=== PATIENT | male | born 1980 | race African-American/Black ===

== ENCOUNTER 2016-08-26 05:28 | Emergency (ER) | payer BC ==
[2016-08-26 05:35] VITALS: BP 136/79; PULSE 88; RESP 18; TEMP 97
[2016-08-26] MEDS ORDERED: KETOROLAC 60 MG/2 ML VIAL IM STA (05:57)
[2016-08-26] MEDS ORDERED: ORPHENADRINE 30 MG/ML 2 ML VIAL IM STA (05:57)
--- NOTE | 2016-08-26 06:01 | ED ---
Back Pain HPI - General Chief Complaint: Back Pain/Injury Stated Complaint: Back Pain Time Seen by Provider: 08/26/16 05:45 Source: patient Limitations: no limitations - History of Present Illness Initial Comments: This patient is a 36-year-old man who presents to be evaluated for low back pain. Patient states that he started expressing pain to the lumbar area of his back when he got out of bed this morning use the bathroom. He indicates that pain is constant, moderate, aching and it is worse if he attempts to move. Pains better if he remains still. Patient has not had any weakness of the legs or any radiation of the pain to the legs. No loss of bladder or bowel control. No saddle anesthesia. MD Complaint: back pain Onset/Timin -: hour(s) Similar Symptoms Previously: No Place: home Radiation: none Severity: moderate Quality: aching Consistency: constant Improves With: movement Worsens With: none Context: turning/twisting Associated Symptoms: denies other symptoms - Related Data Previous Rx's Medication Instructions Recorded Ibuprofen [Motrin] 800 mg PO Q8HR PRN #20 tab 08/26/16 Methocarbamol [Robaxin-750] 750 mg PO TID PRN #30 tablet 08/26/16 Allergies Allergy/AdvReac Type Severity Reaction Status Date / Time No Known Allergies Allergy Verified 08/26/16 05:35 Review of Systems ROS Statement: Those systems with pertinent positive or pertinent negative responses have been documented in the HPI. ROS Other: All systems not noted in ROS Statement are negative. Constitutional: Denies: fever, chills, weakness Cardiovascular: Denies: chest pain Gastrointestinal: Denies: abdominal pain, diarrhea, constipation Genitourinary: Denies: dysuria, hematuria Musculoskeletal: Reports: as per HPI, back pain Neurological: Denies: headache, weakness, numbness Past Medical History Past Medical History: No Reported History History of Any Multi-Drug Resistant Organisms: None Reported Past Surgical History: Orthopedic Surgery Additional Past Surgical History / Comment(s): knee surg Past Psychological History: No Psychological Hx Reported Smoking Status: Former smoker Past Alcohol Use History: Occasional Past Drug Use History: None Reported General Exam Limitations: no limitations General appearance: alert, in no apparent distress GI/Abdominal exam: Present: soft. Absent: distended, tenderness, guarding, rebound, rigid, mass, pulsatile mass, hernia Back exam: Present: muscle spasm, paraspinal tenderness. Absent: tenderness, CVA tenderness (R), CVA tenderness (L), vertebral tenderness Neurological exam: Present: alert, normal gait, reflexes normal. Absent: motor sensory deficit Skin exam: Present: warm, dry, intact, normal color. Absent: rash Course Vital Signs 08/26/16 05:32 Temperature 97.0 F L Pulse Rate 88 Respiratory 18 Rate Blood Pressure 136/79 O2 Sat by Pulse 99 Oximetry Disposition Clinical Impression: Strain of lumbar region Disposition: HOME SELF-CARE Condition: Good Instructions: Acute Low Back Pain (ED) Prescriptions: Ibuprofen [Motrin] 800 mg PO Q8HR PRN #20 tab PRN Reason: Pain Methocarbamol [Robaxin-750] 750 mg PO TID PRN #30 tablet PRN Reason: pain Referrals: None,Stated [Primary Care Provider] - 1-2 days
== END 2016-08-26 06:05 | disposition home or self-care (01) ==
LOC: EC 05:28
DX: S39.012A Strain of muscle, fascia and tendon of lower back, initial encounter (principal); Z87.891 Personal history of nicotine dependence; X50.1XXA Overexertion from prolonged static or awkward postures, initial encounter
CPT/HCPCS: 99283; 96372 ×2; J2360; J1885

== ENCOUNTER 2017-05-25 07:47 | Emergency (ER) | payer BC ==
--- NOTE | 2017-05-25 08:33 | ED ---
General Adult HPI - General Chief complaint: ENT Stated complaint: Ear pain Time Seen by Provider: 05/25/17 08:16 Source: patient, RN notes reviewed Mode of arrival: ambulatory Limitations: no limitations - History of Present Illness Initial comments: Patient 37-year-old male who presents emergency room today with a chief complaint of right-sided ear pain. He does admit that he was diagnosed with bronchitis. States that he was given pain medication cough medication and eardrops a few days ago. He states he isn't for 2 days has not used in the last few days and symptoms are not improving. Patient does have some drainage coming from the right ear. The pain pressure locally. He denies any other complaints or associated symptoms. Patient denies any recent shortness of breath , chest pain, back pain, abdominal pain, nausea or vomiting, numbness or tingling, headaches or visual changes, or any other complaints. - Related Data Home Medications Medication Instructions Recorded Confirmed Vncdmpay-Aqglvnsbu-Mu Otic 4 drops RIGHT EAR TID 05/25/17 05/25/17 [Cortisporin Otic Soln] Previous Rx's Medication Instructions Recorded Acetaminophen-Codeine 300-30mg 1 tab PO Q4H PRN #20 tablet 05/20/17 [Tylenol w/codeine #3] Ibuprofen [Motrin] 600 mg PO Q8HR PRN #20 tab 05/20/17 Amoxicillin 500 mg PO Q8H 10 Days day 05/25/17 Ofloxacin 0.3% Otic Soln [Floxin 10 drops RIGHT EAR BID 7 Days ml 05/25/17 0.3% Otic Soln] Allergies Allergy/AdvReac Type Severity Reaction Status Date / Time No Known Allergies Allergy Verified 05/25/17 08:04 Review of Systems ROS Statement: Those systems with pertinent positive or pertinent negative responses have been documented in the HPI. ROS Other: All systems not noted in ROS Statement are negative. Past Medical History Past Medical History: No Reported History History of Any Multi-Drug Resistant Organisms: None Reported Past Surgical History: Orthopedic Surgery Additional Past Surgical History / Comment(s): knee surg Past Psychological History: No Psychological Hx Reported Smoking Status: Former smoker Past Alcohol Use History: Occasional Past Drug Use History: None Reported General Exam - General Exam Comments Initial Comments: General: The patient is awake and alert, in no distress, and does not appear acutely ill. Eye: Pupils are equal, round and reactive to light, extra-ocular movements are intact. No nystagmus. There is normal conjunctiva bilaterally. No signs of icterus. Ears, nose, mouth and throat: There are moist mucous membranes and no oral lesions. Left TM clear. Right TM difficult to see due to drainage and inflammation of the right ear canal. Neck: The neck is supple, there is no tenderness or JVD. Cardiovascular: There is a regular rate and rhythm. No murmur, rub or gallop is appreciated. Respiratory: Lungs are clear to auscultation, respirations are non-labored, breath sounds are equal. No wheezes, stridor, rales, or rhonchi. Musculoskeletal: Normal ROM, no tenderness. Strength 5/5. Sensation intact. Pulses equal bilaterally 2+. Neurological: A&O x 3. CN II-XII intact, There are no obvious motor or sensory deficits. Coordination appears grossly intact. Speech is normal. Skin: Skin is warm and dry and no rashes or lesions are noted. Psychiatric: Cooperative, appropriate mood & affect, normal judgment. Limitations: no limitations Course Vital Signs 05/25/17 07:54 Temperature 99.1 F Pulse Rate 76 Respiratory 16 Rate Blood Pressure 144/78 O2 Sat by Pulse 98 Oximetry Medical Decision Making - Medical Decision Making 37-year-old male presenting for right-sided ear drainage. Was prescribed eardrops 4 days ago but only use them for the first 2 days. Has not been using drops the past 2 days or not improving. Patient will have antibiotics changed to different eardrops. Patient had ear wick placed into the ear canal to assure that drops were getting in. Advised patient that he sees these eardrops for symptoms to improve. Advised him to THEM doctor the next 2 days. Also start patient on oral antibiotics cover for otitis media as cannot see the tympanic membrane on the right side. Disposition Clinical Impression: Right otitis externa Disposition: HOME SELF-CARE Condition: Good Instructions: Otitis Externa (ED) Additional Instructions: Please use antibiotic drops as prescribed. As well the ear wick to follow up on its own. Please follow-up with ENT or family doctor over the next few days. Please return to the emergency room symptoms increase or worsen or for any other concerns. Prescriptions: Amoxicillin 500 mg PO Q8H 10 Days day Ofloxacin 0.3% Otic Soln [Floxin 0.3% Otic Soln] 10 drops RIGHT EAR BID 7 Days ml Referrals: None,Stated [Primary Care Provider] - 1-2 days Blake Serra MD [STAFF PHYSICIAN] - 1-2 days Time of Disposition: 08:31
[2017-05-25 23:20] VITALS: BP 144/78; PULSE 76; RESP 16; TEMP 99.1
== END 2017-05-25 08:51 | disposition home or self-care (01) ==
LOC: EC 07:47
DX: H60.91 Unspecified otitis externa, right ear (principal); Z87.891 Personal history of nicotine dependence
CPT/HCPCS: 99282

== ENCOUNTER 2017-12-01 12:20 | Emergency (ER) | payer BC ==
[2017-12-01 12:35] VITALS: BP 115/72; PULSE 70; RESP 18; TEMP 98.4
[2017-12-01] MEDS ORDERED: ORPHENADRINE 30 MG/ML 2 ML VIAL IM STA (13:04)
[2017-12-01] MEDS ORDERED: KETOROLAC 30 MG/ML 1 ML VIAL IM STA (13:04)
--- NOTE | 2017-12-01 13:26 | XR ---
EXAMINATION TYPE: XR lumbar spine 2 or 3V DATE OF EXAM: 12/01/2017 CLINICAL HISTORY: Back strain injury yesterday TECHNIQUE: Frontal and lateral images of the lumbar spine are obtained. COMPARISON: None FINDINGS: There are 5 lumbar type vertebral bodies identified. The lumbar spine shows satisfactory alignment without evidence of acute fracture or dislocation. Vertebral body heights and disk space he ights are within normal limits. No significant spurring is seen. The overlying soft tissue appears u nremarkable. IMPRESSION: No acute fracture or dislocation is seen in the lumbar spine.
--- NOTE | 2017-12-01 13:38 | ED ---
General Adult HPI - General Chief complaint: Back Pain/Injury Stated complaint: LOWER BACK PAIN FOLLOWING BENDING OVER Time Seen by Provider: 12/01/17 13:00 Source: patient Mode of arrival: ambulatory Limitations: no limitations - History of Present Illness Initial comments: 37-year-old male presents to the emergency department for a chief complaint of low back pain 2 days. 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 Patient denies any other injuries or falls. Patient has not taken Motrin or Tylenol for the pain. Patient states this has happened to him before in the past for which she was seen here. Patient denies any shooting or sharp pains in the legs. Patient denies any bladder or bowel changes. No IV drug abuse. No history of diabetes. Patient has no other complaints at this time including shortness of breath, chest pain, abdominal pain, nausea or vomiting, headache, or visual changes. - Related Data Previous Rx's Medication Instructions Recorded Cyclobenzaprine [Flexeril] 10 mg PO TID #20 tab 12/01/17 Ibuprofen [Motrin] 600 mg PO Q6HR PRN #20 tab 12/01/17 Allergies Allergy/AdvReac Type Severity Reaction Status Date / Time No Known Allergies Allergy Verified 12/01/17 12:40 Review of Systems ROS Statement: Those systems with pertinent positive or pertinent negative responses have been documented in the HPI. ROS Other: All systems not noted in ROS Statement are negative. Past Medical History Past Medical History: No Reported History History of Any Multi-Drug Resistant Organisms: None Reported Past Surgical History: Orthopedic Surgery Additional Past Surgical History / Comment(s): knee surg Past Psychological History: No Psychological Hx Reported Smoking Status: Current some day smoker Past Alcohol Use History: Occasional Past Drug Use History: None Reported General Exam Limitations: no limitations General appearance: alert, in no apparent distress Head exam: Present: atraumatic, normocephalic, normal inspection Eye exam: Present: normal appearance ENT exam: Present: normal exam, mucous membranes moist Neck exam: Present: normal inspection, full ROM. Absent: tenderness, meningismus, lymphadenopathy Respiratory exam: Present: normal lung sounds bilaterally. Absent: respiratory distress, wheezes, rales, rhonchi, stridor Cardiovascular Exam: Present: regular rate, normal rhythm, normal heart sounds. Absent: systolic murmur, diastolic murmur, rubs, gallop, clicks Extremities exam: Present: normal capillary refill (Capillary refill less than 2 seconds and pedal pulse 2+ and left lower extremities bilaterally), other ( Sensation intact and left lower extremities bilaterally) Back exam: Present: paraspinal tenderness (Minor bilateral paraspinal tenderness.). Absent: full ROM (Patient is about 10 flexion and extension of the low back. Patient is able to twist to both sides bilaterally.), tenderness (Tenderness to the lumbar spine.), CVA tenderness (R), CVA tenderness (L) Course Vital Signs 12/01/17 12:32 Temperature 98.4 F Pulse Rate 70 Respiratory 18 Rate Blood Pressure 115/72 O2 Sat by Pulse 97 Oximetry Medical Decision Making - Medical Decision Making 37-year-old male presents to the emergency department for a chief complaint of low back pain 2 days. 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 Patient states this has happened to him before. Patient denies any other injuries. No bladder or bowel changes. On exam patient has limited range of motion of the low back and is about 10 extend chin and flexion before pain begins. Patient is able to twist to both sides and then laterally. Patient does have some lumbar spinal tenderness as well as minor paraspinal lumbar tenderness.X-ray of the lumbar spine shows no acute fracture or dislocation. Vertebral body height and disc space heights are within normal limits. No significant spurring present. Patient was given Toradol and Norflex in the emergency department which helped with his pain. Patient will be discharged home with Motrin and Flexeril. He was educated not to drive or operate machinery while taking Flexeril. He will follow up with primary care in 1-2 days. Aware he can return to the emergency department if he has any worsening symptoms. Disposition Clinical Impression: Low back pain Disposition: HOME SELF-CARE Condition: Good Instructions: Acute Low Back Pain (ED) Additional Instructions: Please take Motrin as directed. Please take Flexeril as well. Do not take Flexeril if you're driving or operating machinery. Follow up with primary care in 1-2 days. Return to the emergency department if you develop any worsening symptoms such as bladder or bowel dysfunction or severe pain. Prescriptions: Cyclobenzaprine [Flexeril] 10 mg PO TID #20 tab Ibuprofen [Motrin] 600 mg PO Q6HR PRN #20 tab PRN Reason: Pain Is patient prescribed a controlled substance at d/c from ED?: No Referrals: Willem Motley MD [STAFF PHYSICIAN] - 1-2 days Time of Disposition: 13:45
== END 2017-12-01 14:05 | disposition home or self-care (01) ==
LOC: EC 12:20
DX: M54.5 Low back pain (principal); F17.200 Nicotine dependence, unspecified, uncomplicated
CPT/HCPCS: 99283; 96372 ×2; 72100; J2360; J1885

== ENCOUNTER 2017-12-12 16:11 | Emergency (ER) | payer BC ==
[2017-12-12 16:51] VITALS: BP 124/75; PULSE 75; RESP 18; TEMP 98.4
[2017-12-12] MEDS ORDERED: KETOROLAC 60 MG/2 ML VIAL IM STA (17:31)
[2017-12-12] MEDS ORDERED: LIDOCAINE/EPINEPHR/TETRACAINE 5 ML BOTTLE TOPICAL ONE (17:33)
--- NOTE | 2017-12-12 18:31 | ED ---
General Adult HPI - General Chief complaint: Skin/Abscess/Foreign Body Stated complaint: Face swollen Time Seen by Provider: 12/12/17 17:14 Source: patient Mode of arrival: ambulatory Limitations: no limitations - History of Present Illness Initial comments: This a 37-year-old male with no past medical history who presents today for chief complaint of right-sided facial swelling with "ingrown hair" x1day. Patient states that a week ago he noticed sitting return here on the right side of his face in his [place]. However this morning he noticed that the area around the ingrown hair had now become swollen and hard. 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 Pt denies fever, chills, teeth pain , ear pain, overlying erythema, recent antibiotic use, trauma to the jaw/face, insect bite, pruritus, drainage or pus from area, difficulty breathing, trismus. Pt tried to "pop" the area this morning however he was not successful. Pt states that he has been taken ibuprofen for the pain today but it did not help. Patient denies any shortness of breath, chest pain, back pain, abdominal pain, nausea or vomiting, numbness or tingling, dysuria or hematuria, constipation or diarrhea, headaches or visual changes, or any other complaints. Denies previous MRSA infection. - Related Data Previous Rx's Medication Instructions Recorded Cyclobenzaprine [Flexeril] 10 mg PO TID #20 tab 12/01/17 Ibuprofen [Motrin] 600 mg PO Q6HR PRN #20 tab 12/01/17 Doxycycline [Vibramycin] 100 mg PO BID 7 Days #28 capsule 12/12/17 Allergies Allergy/AdvReac Type Severity Reaction Status Date / Time No Known Allergies Allergy Verified 12/01/17 12:40 Review of Systems ROS Statement: Those systems with pertinent positive or pertinent negative responses have been documented in the HPI. ROS Other: All systems not noted in ROS Statement are negative. Constitutional: Denies: fever, chills Eyes: Denies: eye pain, vision change ENT: Denies: ear pain, throat pain Respiratory: Denies: cough Cardiovascular: Denies: chest pain, palpitations Endocrine: Denies: fatigue Gastrointestinal: Denies: abdominal pain, nausea, vomiting, diarrhea, constipation Genitourinary: Denies: urgency, dysuria, frequency Musculoskeletal: Denies: back pain Skin: Reports: as per HPI. Denies: pruritus Past Medical History Past Medical History: No Reported History History of Any Multi-Drug Resistant Organisms: None Reported Past Surgical History: Orthopedic Surgery Additional Past Surgical History / Comment(s): knee surg Past Psychological History: No Psychological Hx Reported Smoking Status: Current some day smoker Past Alcohol Use History: Occasional Past Drug Use History: Marijuana General Exam - General Exam Comments Initial Comments: General: The patient is awake and alert, in no distress, and does not appear acutely ill. Eye: Pupils are equal, round and reactive to light, extra-ocular movements are intact. No nystagmus. There is normal conjunctiva bilaterally. No signs of icterus. Ears, nose, mouth and throat: There are moist mucous membranes and no oral lesions. My tenderness to palpation or percussion of all teeth, pt able to bite tongue depressor without pain. No areas of palpable abscess in the oral cavity.TM intact b/l, cone of light and malleous present, no effusions or erythema b/l. Pt able to open mouth without difficulty. No lesions/masses under tongue. Neck: The neck is supple, there is no tenderness or JVD. Cardiovascular: There is a regular rate and rhythm. No murmur, rub or gallop is appreciated. Respiratory: Lungs are clear to auscultation, respirations are non-labored, breath sounds are equal. No wheezes, stridor, rales, or rhonchi..] Musculoskeletal: Normal ROM, no tenderness. Strength 5/5. Sensation intact. Pulses equal bilaterally 2+. Neurological: A&O x 3. CN II-XII intact, There are no obvious motor or sensory deficits. Coordination appears grossly intact. Speech is normal. Skin: Skin is warm and dry and no rashes. There is a palpable furuncle with surrounding induration, very little central flatulence. No surrounding erythema. No signs of active drainage. No evidence of tracking, Psychiatric: Cooperative, appropriate mood & affect, normal judgment. Limitations: no limitations Course Vital Signs 12/12/17 16:47 Temperature 98.4 F Pulse Rate 75 Respiratory 18 Rate Blood Pressure 124/75 O2 Sat by Pulse 98 Oximetry Procedures - Procedures Initial comment: LET was applied to the area of flutulence for 15 minutes. Iodine was applied topically over area. 18g needle was used to aspirate area/I&D there was no purulent drainage, nothing was aspirated/drained. Only mild active bleeding from procedure. Area cleansed post procedure. Medical Decision Making - Medical Decision Making This a 37-year-old male with no past medical history or ALLERGIES who presents today for chief complaint of right-sided facial swelling and ingrown hair. Pt was given a toradol IM inj for pain. Upon physical examination there is a palpable furuncle with surrounding induration with no overlying erythema/ cellulitis There was no evidence of fluculent abscess or tracking. There is no dental pain upon oral examination, or evidence of abscess within the oral cavity. There was a small area of central fluctuance, of which was aspirated with an 18-gauge needle, there is no purulent discharge with the procedure. At this time feel that there is more induration than fluctulant area abscess that can be incised and drained further. Pt denies fever, chills. Pt is afebrile, with normal HR and BP, at this time my suspicion for systemic spread of infection is low. Patient will be started on doxycycline 100 mg twice daily for 7 days. The patient was examined by Dr. Marin and the case was discussed in detail. Dr. Marin agrees the plan. Patient states that he has Ibuprofen 800mg at home from a previous visit for which she will take for pain management as needed. Patient was educated on the side effects of doxycycline. Patient was instructed to come to emergency department for worsening symptoms, fever, chills and to follow-up PCP a 1-2 days. Disposition Clinical Impression: Furuncle of face Disposition: HOME SELF-CARE Condition: Good Instructions: Abscess Incision and Drainage (ED), Abscess (ED) Prescriptions: Doxycycline [Vibramycin] 100 mg PO BID 7 Days #28 capsule Is patient prescribed a controlled substance at d/c from ED?: No Referrals: None,Stated [Primary Care Provider] - 1-2 days Time of Disposition: 18:35
== END 2017-12-12 18:50 | disposition home or self-care (01) ==
LOC: EC 16:11
DX: L02.02 Furuncle of face (principal); F17.200 Nicotine dependence, unspecified, uncomplicated
CPT/HCPCS: 99283; 10160; 96372; J1885

== ENCOUNTER 2017-12-15 17:26 | Emergency (ER) | payer BC ==
[2017-12-15 18:29] VITALS: BP 113/72; PULSE 67; RESP 18; TEMP 98.2
[2017-12-15] MEDS ORDERED: LIDOCAINE 1% INJ 10MG/ML (20 ML MDV) SQ ONE (19:43)
[2017-12-15] MEDS ORDERED: SULFAMETHOX-TMP 800-160MG 1 EACH TAB PO STA (20:42)
--- NOTE | 2017-12-15 21:02 | ED ---
General Adult HPI - General Chief complaint: Skin/Abscess/Foreign Body Stated complaint: rt cheek swelling revisit Time Seen by Provider: 12/15/17 19:34 Source: patient, RN notes reviewed Mode of arrival: ambulatory Limitations: no limitations - History of Present Illness Initial comments: 37-year-old male presents to the emergency department for a chief complaint of abscess to the right side of the face for about 5 days. Patient states it started off as an ingrown hair. He states he was seen in the emergency department 4 days ago and I and D was attempted but not much fluid was expelled. Patient states he has been taking his antibiotics as directed. Patient denies any fevers or chills at home but states the abscess is getting bigger. Patient states he has also been doing warm compresses but it does not seem to be helping. Patient denies any pain or stiffness in the neck. Patient is able to open the jaw without difficulty. Patient has no other complaints at this time including shortness of breath, chest pain, abdominal pain, nausea or vomiting, headache, or visual changes. - Related Data Previous Rx's Medication Instructions Recorded Cyclobenzaprine [Flexeril] 10 mg PO TID #20 tab 12/01/17 Ibuprofen [Motrin] 600 mg PO Q6HR PRN #20 tab 12/01/17 Doxycycline [Vibramycin] 100 mg PO BID 7 Days #28 capsule 12/12/17 Sulfamethox-Tmp 800-160Mg [Bactrim 2 tab PO Q12HR 10 Days #40 tab 12/15/17 DS 800-160 mg] Allergies Allergy/AdvReac Type Severity Reaction Status Date / Time No Known Allergies Allergy Verified 12/15/17 19:42 Review of Systems ROS Statement: Those systems with pertinent positive or pertinent negative responses have been documented in the HPI. ROS Other: All systems not noted in ROS Statement are negative. Past Medical History Past Medical History: No Reported History History of Any Multi-Drug Resistant Organisms: None Reported Past Surgical History: Orthopedic Surgery Additional Past Surgical History / Comment(s): knee surg Past Psychological History: No Psychological Hx Reported Smoking Status: Current some day smoker Past Alcohol Use History: Occasional Past Drug Use History: Marijuana General Exam Limitations: no limitations General appearance: alert, in no apparent distress Head exam: Present: atraumatic, normocephalic, normal inspection Eye exam: Present: normal appearance. Absent: scleral icterus, conjunctival injection ENT exam: Present: normal exam, normal oropharynx, mucous membranes moist, normal external ear exam Neck exam: Present: normal inspection, full ROM. Absent: tenderness, meningismus, lymphadenopathy Respiratory exam: Present: normal lung sounds bilaterally. Absent: respiratory distress, wheezes, rales, rhonchi, stridor Cardiovascular Exam: Present: regular rate, normal rhythm, normal heart sounds. Absent: systolic murmur, diastolic murmur, rubs, gallop, clicks Skin exam: Present: other (There is a 4 cm x 4 cm abscess to the lateral aspect of the right face. Ear is unaffected. No cellulitic changes over the abscess. Abscess is fluctuant to palpation.) Course Vital Signs 12/15/17 18:26 Temperature 98.2 F Pulse Rate 67 Respiratory 18 Rate Blood Pressure 113/72 O2 Sat by Pulse 99 Oximetry Procedures - Procedures Initial comment: I and D procedure - Incision & Drainage Consent Obtained: verbal consent Site: face Anesthetic Used: lidocaine 1% I&D Cleaning Method: Betadine Sterile Field Used?: Yes Scalpel Used: #11 I&D Drainage Obtained: Pus, Blood Culture Obtained?: Yes Patient Tolerated Procedure: well, no complications Medical Decision Making - Medical Decision Making 37-year-old male presents to the emergency department for a chief complaint of abscess 5 days. Patient states he was seen in the emergency department a few days ago but abscess has continued to grow. Patient denies fevers or chill it at home. No pain or stiffness in the neck. Wound was incised and drained successfully. Exudate was expelled. Patient was put on Bactrim, stop doxycycline. He will return to the emergency department if he has any worsening symptoms including spreading of the abscess cellulitic changes or fever or pain or stiffness in the neck. Dr doll did visualize abscess. He will follow up with primary care in 1-2 days. Disposition Clinical Impression: Abscess Disposition: HOME SELF-CARE Condition: Good Instructions: Abscess Incision and Drainage (ED) Additional Instructions: Please take antibiotics as directed. Please take Motrin and Tylenol for pain. Please follow-up with primary care in 1-2 days. Return to the emergency department if you have worsening symptoms, spreading of the abscess, or fever Prescriptions: Sulfamethox-Tmp 800-160Mg [Bactrim DS 800-160 mg] 2 tab PO Q12HR 10 Days #40 tab Is patient prescribed a controlled substance at d/c from ED?: No Referrals: Rick Jang MD [STAFF PHYSICIAN] - 1-2 days Time of Disposition: 21:00
== END 2017-12-15 21:08 | disposition home or self-care (01) ==
LOC: EC 17:26
DX: L02.01 Cutaneous abscess of face (principal); F17.200 Nicotine dependence, unspecified, uncomplicated
CPT/HCPCS: 87070; 87205; 99283; 10060; J2001

== ENCOUNTER 2018-04-20 10:16 | Emergency (ER) | payer BC ==
[2018-04-20 10:29] VITALS: BP 124/85; TEMP 98.8
[2018-04-20] MEDS ORDERED: IPRATROPIUM-ALBUTEROL 3 ML NEB INHALATION STA (10:58)
--- NOTE | 2018-04-20 11:03 | ED ---
URI HPI - General Chief Complaint: Upper Respiratory Infection Stated Complaint: vomiting/congestion Time Seen by Provider: 04/20/18 10:32 Source: patient, RN notes reviewed Mode of arrival: ambulatory - History of Present Illness Initial Comments: 37-year-old male presents to the emergency Department with chief complaint cough congestion times one week. Patient states initially start sinus congestion, sore throat. He states not settled on his chest. He states that he has productive cough and he gets coughing so hard he has posttussive emesis. Denies any current nausea. Denies any abdominal pain. Patient states that he 's had fever at home, body aches. Patient's taking [id number] cough and cold medications. Patient left work due to symptoms. Patient states that his roommate has been sick with similar symptoms. He states is occasional smoker no prior lung disease. Patient has no shortness breath at this time. - Related Data Home Medications Medication Instructions Recorded Confirmed Ibuprofen [Advil] 400 mg PO Q8HR 04/20/18 04/20/18 Previous Rx's Medication Instructions Recorded Albuterol Sulfate [Proair Hfa] 1 - 2 puff INHALATION Q4HR PRN #1 04/20/18 inhaler Amoxicillin/Potassium Clav 1 tab PO Q12HR #20 tab 04/20/18 [Augmentin 875-125 Tablet] predniSONE 50 mg PO DAILY #5 tab 04/20/18 Allergies Allergy/AdvReac Type Severity Reaction Status Date / Time No Known Allergies Allergy Verified 04/20/18 11:19 Review of Systems ROS Statement: Those systems with pertinent positive or pertinent negative responses have been documented in the HPI. ROS Other: All systems not noted in ROS Statement are negative. Past Medical History Past Medical History: No Reported History History of Any Multi-Drug Resistant Organisms: None Reported Past Surgical History: Orthopedic Surgery Additional Past Surgical History / Comment(s): knee surg Past Psychological History: No Psychological Hx Reported Smoking Status: Current some day smoker Past Alcohol Use History: None Reported Past Drug Use History: None Reported General Exam General appearance: alert, in no apparent distress Head exam: Present: atraumatic, normocephalic, normal inspection Eye exam: Present: normal appearance, PERRL, EOMI. Absent: scleral icterus, conjunctival injection, periorbital swelling ENT exam: Present: normal exam, normal oropharynx, mucous membranes moist Neck exam: Present: normal inspection, full ROM. Absent: tenderness, meningismus, lymphadenopathy Respiratory exam: Present: wheezes. Absent: normal lung sounds bilaterally, respiratory distress, rales, rhonchi, stridor Cardiovascular Exam: Present: regular rate, normal rhythm, normal heart sounds. Absent: systolic murmur, diastolic murmur, rubs, gallop, clicks GI/Abdominal exam: Present: soft, normal bowel sounds. Absent: distended, tenderness, guarding, rebound, rigid Course Vital Signs 04/20/18 04/20/18 10:26 11:26 Temperature 98.8 F Pulse Rate 86 79 Respiratory 18 18 Rate Blood Pressure 124/85 O2 Sat by Pulse 98 99 Oximetry Medical Decision Making - Medical Decision Making 37-year-old male presented for cough congestion for 1 week. Patient states generalized not feeling well. Chest x-ray was obtained which showed no acute cardiopulmonary process. Patient was given a breathing treatment which helped. Patient will be discharged with antibiotics, steroids and probably an inhaler. - Lab Data Lab Results 04/20/18 Range/Units 11:00 Influenza Type A RNA Not Detected (Not Detectd) Influenza Type B (PCR) Not Detected (Not Detectd) Disposition Clinical Impression: Bronchitis, Sinusitis Disposition: HOME SELF-CARE Condition: Stable Instructions: Upper Respiratory Infection (ED) Additional Instructions: Please return to the Emergency Department if symptoms worsen or any other concerns. Prescriptions: Albuterol Sulfate [Proair Hfa] 1 - 2 puff INHALATION Q4HR PRN #1 inhaler PRN Reason: difficulty in breathing Amoxicillin/Potassium Clav [Augmentin 875-125 Tablet] 1 tab PO Q12HR #20 tab predniSONE 50 mg PO DAILY #5 tab Is patient prescribed a controlled substance at d/c from ED?: No Referrals: None,Stated [Primary Care Provider] - 1-2 days Time of Disposition: 12:42
[2018-04-20 11:27] VITALS: PULSE 79; RESP 18
--- NOTE | 2018-04-20 11:38 | XR ---
EXAMINATION TYPE: XR chest 2V DATE OF EXAM: 04/20/2018 COMPARISON: Chest x-ray May 18, 2017. HISTORY: Cough congestion and vomiting. Chest pain. TECHNIQUE: Frontal and lateral views of the chest are obtained. FINDINGS: There is no focal air space opacity, pleural effusion, or pneumothorax seen. The cardiac silhouette size is within normal limits. The osseous structures are intact. IMPRESSION: No acute cardiopulmonary process. No significant change from prior.
== END 2018-04-20 13:10 | disposition home or self-care (01) ==
LOC: EC 10:16
DX: J40 Bronchitis, not specified as acute or chronic (principal); J32.9 Chronic sinusitis, unspecified; F17.200 Nicotine dependence, unspecified, uncomplicated; Z79.1 Long term (current) use of non-steroidal anti-inflammatories (NSAID)
CPT/HCPCS: 71046; 87502; 94640; 99283

== ENCOUNTER 2019-02-10 22:02 | Emergency (ER) | payer BC ==
[2019-02-10 22:11] VITALS: PULSE 74; TEMP 98
[2019-02-10] MEDS ORDERED: IBUPROFEN 600 MG TAB PO STA (22:19)
--- NOTE | 2019-02-10 22:19 | ED ---
Lower Extremity Injury HPI - General Chief Complaint: Extremity Injury, Lower Stated Complaint: Ankle injury Time Seen by Provider: 02/10/19 22:12 Source: patient Mode of arrival: wheelchair Limitations: no limitations - History of Present Illness Initial Comments: Patient is a 38-year-old male presenting to the emergency Department with complaints of left ankle pain that started just prior to arrival. Patient states he was moving his couch when his left ankle rolled to the side and then he fell with his couch landing on his left ankle. Patient is having ankle pain on the lateral and medial aspect as well as into the medial side of the left foot. Patient states he is unable to bear any weight. Patient denies any other injuries at this time. Patient admits to previous left knee ACL repair. Patient denies any pertinent past medical history. Patient takes no medications. No other complaints at this time. Upon arrival to ER, vital signs are stable. - Related Data Home Medications Medication Instructions Recorded Confirmed Ibuprofen [Advil] 400 mg PO Q8HR 04/20/18 04/20/18 Previous Rx's Medication Instructions Recorded Albuterol Sulfate [Proair Hfa] 1 - 2 puff INHALATION Q4HR PRN #1 04/20/18 inhaler Amoxicillin/Potassium Clav 1 tab PO Q12HR #20 tab 04/20/18 [Augmentin 875-125 Tablet] predniSONE 50 mg PO DAILY #5 tab 04/20/18 Allergies Allergy/AdvReac Type Severity Reaction Status Date / Time No Known Allergies Allergy Verified 04/20/18 11:19 Review of Systems ROS Statement: Those systems with pertinent positive or pertinent negative responses have been documented in the HPI. ROS Other: All systems not noted in ROS Statement are negative. Past Medical History Past Medical History: No Reported History History of Any Multi-Drug Resistant Organisms: None Reported Past Surgical History: Orthopedic Surgery Additional Past Surgical History / Comment(s): knee surg Past Psychological History: No Psychological Hx Reported Smoking Status: Current some day smoker Past Alcohol Use History: None Reported Past Drug Use History: None Reported General Exam - General Exam Comments Initial Comments: GENERAL: Well-appearing, well-nourished and in no acute distress. HEAD: Atraumatic, normocephalic. EYES: Pupils equal round and reactive to light, extraocular movements intact, sclera anicteric, conjunctiva are normal. ENT: TMs normal, nares patent, oropharynx clear without exudates. Moist mucous membranes. NECK: Normal range of motion, supple without lymphadenopathy or JVD. LUNGS: Breath sounds clear to auscultation bilaterally and equal. No wheezes rales or rhonchi. HEART: Regular rate and rhythm without murmurs, rubs or gallops. ABDOMEN: Soft, nontender, normoactive bowel sounds. No guarding, no rebound. No masses appreciated. : Deferred EXTREMITIES: Pain with palpation of the left medial and lateral malleolus as well as left first metatarsal. Decreased range of motion of the left ankle secondary to pain. There is no swelling at this time. Neurovascular intact. NEUROLOGICAL: Cranial nerves II through XII grossly intact. Normal speech, normal gait. PSYCH: Normal mood, normal affect. SKIN: Warm, Dry, normal turgor, no rashes or lesions noted. Limitations: no limitations Course Vital Signs 02/10/19 22:07 Temperature 98.0 F Pulse Rate 74 Respiratory 18 Rate Blood Pressure 115/77 O2 Sat by Pulse 100 Oximetry Medical Decision Making - Medical Decision Making Patient is a 38-year-old male presenting with left ankle pain that happened prior to arrival. Patient states he was moving a couch when his left ankle rolled he fell on the couch landed on his foot again. On exam patient has palpation of the lateral and medial malleolus as well as the first metatarsal. There is no swelling and patient is neurovascular intact. Patient has decreased range of motion secondary to pain. X-rays reveal no acute fractures or dislocations. Patient is having pain with weightbearing. Patient was put in an Aircast and he reports improvement in symptoms with the pressure of the splint. Patient was given a work note for 2 days. Patient will use ice elevation and NSAIDs for relief of pain. Patient is stable for discharge at this time. Return parameters were discussed with the patient he verbalizes understanding. If pain persists in the next 2 weeks without improvement patient will follow up for repeat x-rays. Patient is in agreement with this plan of care. Case discussed with Dr. Ray. Disposition Clinical Impression: Left ankle sprain, Left ankle pain Disposition: HOME SELF-CARE Condition: Stable Instructions (If sedation given, give patient instructions): Ankle Sprain (ED) Additional Instructions: Please return to the Emergency Department if symptoms worsen or any other concerns. Follow-up with PCP if symptoms persist over 1-2 weeks. Do icing it and take Motrin for pain. Wear air cast as needed for support. Is patient prescribed a controlled substance at d/c from ED?: No Referrals: None,Stated [Primary Care Provider] - 1-2 days
--- NOTE | 2019-02-10 22:48 | XR ---
EXAMINATION TYPE: XR foot complete LT DATE OF EXAM: 02/10/2019 COMPARISON: NONE HISTORY: Pain TECHNIQUE: 3 views FINDINGS: Metatarsals are intact. I see no fracture nor dislocation. Joint spaces are fairly normal. IMPRESSION: Negative left foot exam.
--- NOTE | 2019-02-10 22:48 | XR ---
EXAMINATION TYPE: XR ankle complete LT DATE OF EXAM: 02/10/2019 COMPARISON: NONE HISTORY: Injury. Pain. TECHNIQUE: 3 views FINDINGS: Ankle mortise is anatomic. There is some calcification at the lateral malleolus consistent with old injury. Joint spaces are fairly normal. IMPRESSION: No acute bony abnormality. This probably old ligamentous injury at the medial collateral ligament.
[2019-02-11 00:29] VITALS: BP 118/80; RESP 16
== END 2019-02-10 23:18 | disposition home or self-care (01) ==
LOC: EC 22:02
DX: S93.402A Sprain of unspecified ligament of left ankle, initial encounter (principal); F17.200 Nicotine dependence, unspecified, uncomplicated; Z98.890 Other specified postprocedural states; W18.39XA Other fall on same level, initial encounter; Y93.89 Activity, other specified
CPT/HCPCS: 73610; 73630; 99283; 29515; L4350

== ENCOUNTER 2020-08-13 06:38 | Emergency (ER) | payer BC, OTHER ==
[2020-08-13 07:19] LABS: Basophils # (A) 0.1 k/uL (0-0.2); Basophils % (A) 1 %; Eosinophils # (A) 0.3 k/uL (0-0.7); Eosinophils % (A) 3 %; HCT 43.4 % (39.0-53.0); HGB 14.9 gm/dL (13.0-17.5); Lymphocytes # (A) 4.1 k/uL (1.0-4.8); Lymphocytes % (A) 46 %; MCH 30.2 pg (25.0-35.0); MCHC 34.4 g/dL (31.0-37.0); Mean Platelet Volume 7.4; Monocytes # (A) 0.5 k/uL (0-1.0); Monocytes % (A) 6 %; Neutrophils # (A) 3.8 k/uL (1.3-7.7); Neutrophils % (A) 42 %; Platelet Count 285 k/uL (150-450); RBC 4.93 m/uL (4.30-5.90); RDW 13.6 % (11.5-15.5); WBC 9.1 k/uL (3.8-10.6)
[2020-08-13 07:30] LABS: African American GFR (CKD) >90 (>60 ml/min/1.73 sqM); Anion Gap 8 mmol/L; Blood Urea Nitrogen 13 mg/dL (9-20); Calcium 9.3 mg/dL (8.4-10.2); Carbon Dioxide 26 mmol/L (22-30); Chloride 106 mmol/L (98-107); Glucose 120 mg/dL (74-99); Non-African American GFR(CKD) >90 (>60 ml/min/1.73 sqM); Potassium 4.4 mmol/L (3.5-5.1); Sodium 140 mmol/L (137-145)
--- NOTE | 2020-08-13 08:03 | CT ---
EXAMINATION TYPE: CT pelvis w con DATE OF EXAM: 08/13/2020 COMPARISON: None HISTORY: Right groin abscess, possible mass CT DLP: 1438.9 mGycm CONTRAST: CT scan of the pelvis is performed without Oral Contrast and with IV Contrast, patient injected with 100 ml mL of Isovue 300. FINDINGS: BOWEL: Normal appendix. Normal bowel caliber. No inflammation. GENITAL ORGANS: No gross abnormality. LYMPH NODES: No greater than 1cm abdominal or pelvic lymph nodes are appreciated. AORTA: No significant abnormality. OSSEOUS STRUCTURES: No significant abnormality is seen. OTHER: At the site of clinical concern right groin there is a subcutaneous nodule identified with adj acent skin thickening which measures 3.3 x 1.6 x 1.5 cm and may reflect a thick walled sebaceous cyst . Lesion of other etiology is not excluded. No drainable abscess identified. IMPRESSION: 1. At the site of clinical concern right groin there is a subcutaneous nodule identified with adjacen t skin thickening which measures 3.3 x 1.6 x 1.5 cm and may reflect a thick walled sebaceous cyst. Le demi of other etiology is not excluded.
[2020-08-13] MEDS ORDERED: ACET/COD 300 MG/30 MG STARTER PACK 6 TAB BTL PO STA (08:26)
--- NOTE | 2020-08-13 08:27 | ED ---
Abdominal Pain HPI - General Chief Complaint: Abdominal Pain Stated Complaint: Groin Pain Time Seen by Provider: 08/13/20 06:54 Source: patient Mode of arrival: ambulatory Limitations: no limitations - History of Present Illness Initial Comments: This a 40-year-old male presents emergency Department chief complaint right groin, leg pain. Patient states she's had increasing pressure and pain in his groin region states that he noticed a lump. Patient states Is, gone. Patient states that is very hard to the touch and painful. Patient states she's felt ill, chills at home. Denies any nausea or constipation. Patient states she's never had any like this in the past. Denies any complaints. - Related Data Previous Rx's Medication Instructions Recorded Clindamycin HCl 300 mg PO Q6HR #40 cap 08/13/20 Ibuprofen [Motrin] 600 mg PO Q8HR PRN #20 tab 08/13/20 Allergies Allergy/AdvReac Type Severity Reaction Status Date / Time No Known Allergies Allergy Verified 08/13/20 08:09 Review of Systems ROS Statement: Those systems with pertinent positive or pertinent negative responses have been documented in the HPI. ROS Other: All systems not noted in ROS Statement are negative. Past Medical History Past Medical History: No Reported History History of Any Multi-Drug Resistant Organisms: None Reported Past Surgical History: Orthopedic Surgery Additional Past Surgical History / Comment(s): knee surg Past Psychological History: No Psychological Hx Reported Smoking Status: Never smoker Past Alcohol Use History: Occasional Past Drug Use History: Marijuana General Exam Limitations: no limitations General appearance: alert, in no apparent distress Head exam: Present: atraumatic, normocephalic, normal inspection Eye exam: Present: normal appearance, PERRL, EOMI. Absent: scleral icterus, conjunctival injection, periorbital swelling ENT exam: Present: normal exam, normal oropharynx, mucous membranes moist Neck exam: Present: normal inspection, full ROM. Absent: tenderness, meningismus, lymphadenopathy Respiratory exam: Present: normal lung sounds bilaterally. Absent: respiratory distress, wheezes, rales, rhonchi, stridor Cardiovascular Exam: Present: regular rate, normal rhythm, normal heart sounds. Absent: systolic murmur, diastolic murmur, rubs, gallop, clicks GI/Abdominal exam: Present: soft, normal bowel sounds. Absent: distended, tenderness, guarding, rebound, rigid Extremities exam: Present: other (Right groin there is a very firm linear long 3cm area of swelling moderately tender) Course Vital Signs 08/13/20 06:40 Temperature 97.6 F Pulse Rate 83 Respiratory 18 Rate Blood Pressure 142/85 O2 Sat by Pulse 97 Oximetry Medical Decision Making - Medical Decision Making CT was performed given the patient's symptoms labs are unremarkable. Patient has appears to be a sebaceous cyst possible hydradenitis. Patient will be referred to surgery is no drainable abscess. - Lab Data Result diagrams: 08/13/20 06:55 08/13/20 06:55 Lab Results 08/13/20 08/13/20 08/13/20 Range/Units 06:55 06:55 06:55 WBC 9.1 (3.8-10.6) k/uL RBC 4.93 (4.30-5.90) m/uL Hgb 14.9 (13.0-17.5) gm/dL Hct 43.4 (39.0-53.0) % MCV 88.0 (80.0-100.0) fL MCH 30.2 (25.0-35.0) pg MCHC 34.4 (31.0-37.0) g/dL RDW 13.6 (11.5-15.5) % Plt Count 285 (150-450) k/uL MPV 7.4 Neutrophils % 42 % Lymphocytes % 46 % Monocytes % 6 % Eosinophils % 3 % Basophils % 1 % Neutrophils # 3.8 (1.3-7.7) k/uL Lymphocytes # 4.1 (1.0-4.8) k/uL Monocytes # 0.5 (0-1.0) k/uL Eosinophils # 0.3 (0-0.7) k/uL Basophils # 0.1 (0-0.2) k/uL Sodium 140 (137-145) mmol/L Potassium 4.4 (3.5-5.1) mmol/L Chloride 106 (98-107) mmol/L Carbon Dioxide 26 (22-30) mmol/L Anion Gap 8 mmol/L BUN 13 (9-20) mg/dL Creatinine 0.77 (0.66-1.25) mg/dL Est GFR (CKD-EPI)AfAm >90 (>60 ml/min/1.73 sqM) Est GFR (CKD-EPI)NonAf >90 (>60 ml/min/1.73 sqM) Glucose 120 H (74-99) mg/dL Plasma Lactic Acid Hema 1.2 (0.7-2.0) mmol/L Calcium 9.3 (8.4-10.2) mg/dL Disposition Clinical Impression: Infected sebaceous cyst of skin, Hydradenitis Disposition: HOME SELF-CARE Condition: Stable Instructions (If sedation given, give patient instructions): Cyst (ED) Additional Instructions: Please follow up with surgery as directed.Please return to the Emergency Department if symptoms worsen or any other concerns. Prescriptions: Clindamycin HCl 300 mg PO Q6HR #40 cap Ibuprofen [Motrin] 600 mg PO Q8HR PRN #20 tab PRN Reason: Pain Is patient prescribed a controlled substance at d/c from ED?: No Referrals: None,Stated [Primary Care Provider] - 1-2 days Huong King MD [STAFF PHYSICIAN] - 1-2 days Time of Disposition: 08:26
[2020-08-13 08:36] VITALS: BP 142/89; PULSE 78; RESP 16; TEMP 98.2
== END 2020-08-13 08:35 | disposition home or self-care (01) ==
LOC: EC 06:38
DX: L72.3 Sebaceous cyst (principal); L73.2 Hidradenitis suppurativa
CPT/HCPCS: 36415; 80048; 83605; 85025; 72193; 99284; Q9967

== ENCOUNTER 2021-02-09 05:25 | Emergency (ER) | payer BC, OTHER ==
[2021-02-09 05:30] VITALS: BP 120/80; PULSE 60; TEMP 98
[2021-02-09] MEDS ORDERED: LIDOCAINE 1% INJ 10MG/ML (20 ML MDV) SQ ONE (06:16)
[2021-02-09] MEDS ORDERED: ACET/COD 300 MG/30 MG STARTER PACK 6 TAB BTL PO STA (06:25)
--- NOTE | 2021-02-09 06:26 | ED ---
Skin/Abscess/FB HPI - General Chief complaint: Skin/Abscess/Foreign Body Stated complaint: cyst in groin Time Seen by Provider: 02/09/21 06:02 Source: patient, RN notes reviewed Mode of arrival: ambulatory Limitations: no limitations - History of Present Illness Initial comments: This a 40-year-old male presents emergency Department with chief complaint of right groin abscess. Patient states he had the psych in the past was treated with antibiotics and cleared up states it became more painful today. No fevers or chills no drainage at this time no history of MRSA. Patient states that the abscesses in the same area. - Related Data Previous Rx's Medication Instructions Recorded Clindamycin HCl 300 mg PO Q6HR #40 cap 08/13/20 Ibuprofen [Motrin] 600 mg PO Q8HR PRN #20 tab 08/13/20 Clindamycin HCl 300 mg PO Q6HR #40 cap 02/09/21 Ibuprofen [Motrin] 600 mg PO Q8HR PRN #30 tab 02/09/21 Allergies Allergy/AdvReac Type Severity Reaction Status Date / Time No Known Allergies Allergy Verified 02/09/21 05:30 Review of Systems ROS Statement: Those systems with pertinent positive or pertinent negative responses have been documented in the HPI. ROS Other: All systems not noted in ROS Statement are negative. Past Medical History Past Medical History: No Reported History History of Any Multi-Drug Resistant Organisms: None Reported Past Surgical History: Orthopedic Surgery Additional Past Surgical History / Comment(s): knee surg Past Psychological History: No Psychological Hx Reported Smoking Status: Never smoker Past Alcohol Use History: Occasional Past Drug Use History: Marijuana General Exam General appearance: alert, in no apparent distress Head exam: Present: atraumatic, normocephalic, normal inspection Neck exam: Present: normal inspection, full ROM. Absent: tenderness, meningismus, lymphadenopathy Respiratory exam: Present: normal lung sounds bilaterally. Absent: respiratory distress, wheezes, rales, rhonchi, stridor Cardiovascular Exam: Present: regular rate, normal rhythm, normal heart sounds. Absent: systolic murmur, diastolic murmur, rubs, gallop, clicks Extremities exam: Present: other (Right groin is noted 2 cm abscess which is fluctuant and tender) Course Vital Signs 02/09/21 05:27 Temperature 98 F Pulse Rate 60 Respiratory 19 Rate Blood Pressure 120/80 O2 Sat by Pulse 97 Oximetry Procedures - Incision & Drainage Consent Obtained: written consent Site: other (Right groin area) Size (cm): 2 Anesthetic Used: lidocaine 1% Amount (mLs): 3 I&D Cleaning Method: Alcohol Wipe Sterile Field Used?: No Scalpel Used: #11 I&D Drainage Obtained: Pus Patient Tolerated Procedure: well, no complications Medical Decision Making - Medical Decision Making Abscess was I&D, patient instructed to do warm compresses discharge on oral antibiotics advised that there is chance this could be from hydradenitis and his recurrent to follow-up with Gen. surgery. Disposition Clinical Impression: Abscess of groin, right Disposition: HOME SELF-CARE Condition: Stable Instructions (If sedation given, give patient instructions): Abscess Incision and Drainage (ED) Additional Instructions: Please return to the Emergency Department if symptoms worsen or any other concerns. Prescriptions: Clindamycin HCl 300 mg PO Q6HR #40 cap Ibuprofen [Motrin] 600 mg PO Q8HR PRN #30 tab PRN Reason: Pain Is patient prescribed a controlled substance at d/c from ED?: No Referrals: None,Stated [Primary Care Provider] - 1-2 days Time of Disposition: 06:26
[2021-02-09 06:38] VITALS: RESP 18
== END 2021-02-09 06:38 | disposition home or self-care (01) ==
LOC: EC 05:25
DX: L02.214 Cutaneous abscess of groin (principal)
CPT/HCPCS: 10060; 99283; J2001

== ENCOUNTER 2022-05-28 11:51 | Emergency (ER) | payer OTHER ==
[2022-05-28 11:56] VITALS: BP 135/82; PULSE 72; RESP 16; TEMP 98
[2022-05-28] MEDS ORDERED: DEXAMETHASONE SOD PHOSPHATE 10 MG/ML 1 ML VIAL IM STA (12:15)
[2022-05-28] MEDS ORDERED: KETOROLAC 15 MG/ML 1 ML VIAL IM STA (12:15)
[2022-05-28] MEDS ORDERED: ORPHENADRINE 30 MG/ML 2 ML VIAL IM STA (12:15)
--- NOTE | 2022-05-28 13:03 | XR ---
EXAMINATION TYPE: XR cervical spine comp DATE OF EXAM: 05/28/2022 12:53 PM INDICATION: Patient age:Male; 42 years old; Reason for study: neck pain; PHH. COMPARISON: None TECHNIQUE: The cervical spine was imaged in AP, oblique, odontoid and lateral projections. FINDINGS: The osseous structures show normal alignment without evidence of an acute fracture. Mild anterior ost eophytosis of C4-C5 and C5-C6 with minimal disc space narrowing. The intervertebral disk spaces are p reserved. Pedicles are intact. Soft tissues are within normal limits. The odontoid appears intact. IMPRESSION: 1. No fracture or dislocation. 2. Minimal degenerative disc disease changes of the cervical spine.
--- NOTE | 2022-05-28 13:04 | ED ---
Neck Injury/Pain HPI - General Chief Complaint: Neck Pain/Injury Stated Complaint: Neck Pain Time Seen by Provider: 05/28/22 12:09 Mode of arrival: ambulatory Limitations: no limitations - History of Present Illness Initial Comments: She is a 42-year-old male presenting with chief complaint of neck pain. Patient states that the pain started yesterday. It is located primarily on the right side. No injury or trauma. Patient states it feels like a muscle soreness. Patient admits to some pain with swallowing, he believes it is due to his neck pain. He states it does not feel like a normal sore throat. He admits to some radiation of pain down the back side of his right arm. No chest pain or difficulty breathing. No fever, chills, vomiting, abdominal pain, cough, congestion, sinus pain, ear pressure, headache, vision or hearing changes, dizziness. - Related Data Previous Rx's Medication Instructions Recorded Ibuprofen [Motrin] 600 mg PO Q8HR PRN #20 tab 08/13/20 clindamycin HCL [Clindamycin HCl] 300 mg PO Q6HR #40 cap 08/13/20 Ibuprofen [Motrin] 600 mg PO Q8HR PRN #30 tab 02/09/21 clindamycin HCL [Clindamycin HCl] 300 mg PO Q6HR #40 cap 02/09/21 Cyclobenzaprine [Flexeril] 10 mg PO HS PRN #20 tab 05/28/22 Allergies Allergy/AdvReac Type Severity Reaction Status Date / Time No Known Allergies Allergy Verified 02/09/21 05:30 Review of Systems ROS Statement: Those systems with pertinent positive or pertinent negative responses have been documented in the HPI. ROS Other: All systems not noted in ROS Statement are negative. Past Medical History Past Medical History: No Reported History History of Any Multi-Drug Resistant Organisms: None Reported Past Surgical History: Orthopedic Surgery Additional Past Surgical History / Comment(s): knee surg Past Psychological History: No Psychological Hx Reported Smoking Status: Never smoker Past Alcohol Use History: Occasional Past Drug Use History: Marijuana General Exam Limitations: no limitations General appearance: alert, in no apparent distress Head exam: Present: atraumatic, normocephalic, normal inspection Eye exam: Present: normal appearance ENT exam: Present: normal exam, normal oropharynx Neck exam: Present: normal inspection, tenderness (Right-sided muscle tenderness and tension) Respiratory exam: Present: normal lung sounds bilaterally. Absent: respiratory distress, wheezes, rales, rhonchi, stridor Cardiovascular Exam: Present: regular rate, normal rhythm, normal heart sounds. Absent: systolic murmur, diastolic murmur, rubs, gallop, clicks Neurological exam: Present: alert, oriented X3, CN II-XII intact Psychiatric exam: Present: normal affect, normal mood Skin exam: Present: warm, dry, intact, normal color. Absent: rash Course Vital Signs 05/28/22 11:54 Temperature 98 F Pulse Rate 72 Respiratory 16 Rate Blood Pressure 135/82 O2 Sat by Pulse 99 Oximetry Medical Decision Making - Medical Decision Making Was pt. sent in by a medical professional or institution (, PA, MOTORCYCLE BUILDER, urgent care, hospital, or assisted...) When possible be specific @ -[No] Did you speak to anyone other than the patient for history (EMS, parent, family, police, friend...)? What history was obtained from this source @ -[No] Did you review nursing and triage notes (agree or disagree)? Why? @ -[I reviewed and agree with nursing and triage notes] Were old charts reviewed (outside hosp., previous admission, EMS record, old EKG, old radiological studies, urgent care reports/EKG's, assisted records)? Report findings @ -[No old charts were reviewed] Differential Diagnosis (chest pain, altered mental status, abdominal pain women, abdominal pain men, vaginal bleeding, weakness, fever, dyspnea, syncope, headache, dizziness, GI bleed, back pain, seizure, CVA, palpatations, mental health)? @ -Differential includes neck muscle strain, muscle spasm, lymphadenopathy, pharyngitis, meningitis, radiculopathy. EKG interpreted by me (3pts min.). @ -None X-rays interpreted by me (1pt min.). @ -Yes, no acute fracture or dislocation. No acute abnormality of the soft tissues of the neck CT interpreted by me (1pt min.). @ -[None done] U/S interpreted by me (1pt. min.). @ -[None done] What testing was considered but not performed or refused? (CT, X-rays, U/S, labs)? Why? @ -[None] What meds were considered but not given or refused? Why? @ -[None] Did you discuss the management of the patient with other professionals (professionals i.e. , PA, MOTORCYCLE BUILDER, lab, RT, psych nurse, social work therapist, treatment coordinator, teacher, fisheries technical officer, briefcase sewer)? Give summary @ -[No] Was smoking cessation discussed for >3mins.? @ -[No] Was critical care preformed (if so, how long)? @ -[No] Were there social determinants of health that impacted care today? How? (Homelessness, low income, unemployed, alcoholism, drug addiction, transportation, low edu. Level, literacy, decrease access to med. care, assisted, rehab)? @ -[No] Was there de-escalation of care discussed even if they declined (Discuss DNR or withdrawal of care, Hospice)? DNR status @ -[No] What co-morbidities impacted this encounter? (DM, HTN, Smoking, COPD, CAD, Cancer, CVA, ARF, Chemo, Hep., AIDS, mental health diagnosis, sleep apnea, m orbid obesity)? @ -[None] Was patient admitted / discharged? Hospital course, mention meds given and route, prescriptions, significant lab abnormalities, going to OR and other pertinent info. @ -Patient is a 42-year-old male presenting with chief complaint of neck pain. Pain is located primarily on the right side. Worse with range of motion. On physical examination muscle spasm is noted on palpation. No meningismus. Patient is afebrile. Normal posterior pharynx. Patient is given pain medication. Cervical spine x-ray and soft tissue neck x-ray showed no acute process. There is some degenerative changes on cervical spine x-ray. Patient reports improvement in his symptoms after medication. Likely muscle strain and spasm causing his symptoms. Will be discharged home with muscle relaxer. Do not take before driving or operating heavy machinery as it may cause drowsiness. Follow-up with PCP. Report back to ER with any new or worsening symptoms. Discussed return parameters and answered all questions. Patient conveyed verbal understanding and agreed to the plan. I discussed this case in detail with my attending Dr. Stark Undiagnosed new problem with uncertain prognosis? @ -[No] Drug Therapy requiring intensive monitoring for toxicity (Heparin, Nitro, Insulin, Cardizem)? @ -[No] Were any procedures done? @ -[No] Diagnosis/symptom? @ -[default] Acute, or Chronic, or Acute on Chronic? @ -[default] Uncomplicated (without systemic symptoms) or Complicated (systemic symptoms)? @ -[default] Side effects of treatment? @ -[No] Exacerbation, Progression, or Severe Exacerbation? @ -[No] Poses a threat to life or bodily function? How? (Chest pain, [place], [place], pneumonia, PE, COPD, DKA, ARF, appy, cholecystitis, CVA, Diverticulitis, Homicidal, Suicidal, threat to staff... and all critical care pts) @ -[No] Disposition Clinical Impression: Strain of neck muscle Disposition: HOME SELF-CARE Condition: Good Instructions (If sedation given, give patient instructions): Cervical Strain (ED) Additional Instructions: Follow-up with PCP. Report back to ER with any new or worsening symptoms. Take medication as prescribed. Do not take cyclobenzaprine before driving or operating heavy machinery as it may cause drowsiness. Take Motrin and Tylenol as needed for pain control. Prescriptions: Cyclobenzaprine [Flexeril] 10 mg PO HS PRN #20 tab PRN Reason: Spasms Is patient prescribed a controlled substance at d/c from ED?: No Referrals: None,Stated [Primary Care Provider] - 1-2 days Time of Disposition: 13:53
--- NOTE | 2022-05-28 13:28 | XR ---
EXAMINATION TYPE: XR soft tissue neck DATE OF EXAM: 05/28/2022 1:19 PM INDICATION: Patient age:Male; 42 years old; Reason for study: pain with swallowing; PHH. COMPARISON: Cervical spine radiograph the same date. TECHNIQUE: The soft tissues of the neck were imaged in 2 views. FINDINGS: The prevertebral soft tissues are unremarkable. There is no evidence of mass effect or trac heal deviation. No acute osseous abnormality demonstrated. No evidence of subglottic narrowing. No radiopaque foreign body. IMPRESSION: No significant abnormality identified within the soft tissues of the neck.
== END 2022-05-28 14:21 | disposition home or self-care (01) ==
LOC: EC 11:51
DX: S16.1XXA Strain of muscle, fascia and tendon at neck level, initial encounter (principal); F12.90 Cannabis use, unspecified, uncomplicated; X58.XXXA Exposure to other specified factors, initial encounter
CPT/HCPCS: 70360; 72050; 99283; 96372 ×3; J1100; J2360; J1885

== ENCOUNTER 2022-11-10 12:21 | Emergency (ER) | payer BC, OTHER ==
[2022-11-10 12:52] VITALS: BP 116/75; PULSE 75; RESP 16; TEMP 97.9
--- NOTE | 2022-11-10 13:58 | ED ---
Neck Injury/Pain HPI - General Source: patient, RN notes reviewed Mode of arrival: ambulatory Limitations: no limitations - History of Present Illness MD Complaint: neck pain Onset/Timin -: days(s) <Kaila Jain - Last Filed: 11/10/22 13:58> <Nette Rock - Last Filed: 11/10/22 21:12> - General Chief Complaint: Neck Pain/Injury Stated Complaint: neck pain Time Seen by Provider: 11/10/22 13:55 - History of Present Illness Initial Comments: This is a 42-year-old male who presents to the emergency department for right- sided neck pain. States that he woke up with this yesterday and the pain is now going into the right shoulder. Denies any injuries. Also reports a sore throat and nausea. He has been here before for a neck strain and discharged with muscle relaxants. He's also had a sore throat that he previously attributed to the neck pain. Unsure if the sore throat is again from the neck or another issue altogether. (Kaila Jain) 42-year-old male presents emergency Department with chief complaint of neck pain. He states that he woke up yesterday and was having pain in his throat and on the sides of his neck. He does admit to nausea without vomiting. He states that he has had a decrease in appetite but is able to tolerate food and water without issue. He states that he feels like he may have had a fever but has no fever reported at home. He reports normal range of motion in his neck. Denies chest pain, shortness of breath. (Nette Rock) - Related Data Previous Rx's Medication Instructions Recorded Ibuprofen [Motrin] 600 mg PO Q8HR PRN #20 tab 08/13/20 clindamycin HCL [Clindamycin HCl] 300 mg PO Q6HR #40 cap 08/13/20 Ibuprofen [Motrin] 600 mg PO Q8HR PRN #30 tab 02/09/21 clindamycin HCL [Clindamycin HCl] 300 mg PO Q6HR #40 cap 02/09/21 Cyclobenzaprine [Flexeril] 10 mg PO HS PRN #20 tab 05/28/22 Amoxicillin 875 mg PO Q12HR #20 tablet 11/10/22 Allergies Allergy/AdvReac Type Severity Reaction Status Date / Time No Known Allergies Allergy Verified 11/10/22 12:49 Review of Systems ROS Other: All systems not noted in ROS Statement are negative. <Kaila Jain - Last Filed: 11/10/22 13:58> ROS Other: All systems not noted in ROS Statement are negative. <Nette Rock - Last Filed: 11/10/22 21:12> ROS Statement: Those systems with pertinent positive or pertinent negative responses have been documented in the HPI. Past Medical History Past Medical History: No Reported History History of Any Multi-Drug Resistant Organisms: None Reported Past Surgical History: Orthopedic Surgery Additional Past Surgical History / Comment(s): knee surg Past Psychological History: No Psychological Hx Reported Smoking Status: Never smoker Past Alcohol Use History: Occasional Past Drug Use History: Marijuana <Kaila Jain - Last Filed: 11/10/22 13:58> General Exam Limitations: no limitations <Cinda Jainian - Last Filed: 11/10/22 13:58> General appearance: alert, in no apparent distress Head exam: Present: atraumatic, normocephalic, normal inspection Eye exam: Present: normal appearance, PERRL, EOMI. Absent: scleral icterus, conjunctival injection, periorbital swelling ENT exam: Present: mucous membranes moist, TM's normal bilaterally, normal external ear exam. Absent: normal oropharynx (Erythematous) Neck exam: Present: normal inspection, lymphadenopathy (Anterior cervical). Absent: tenderness, meningismus Respiratory exam: Present: normal lung sounds bilaterally. Absent: respiratory distress, wheezes, rales, rhonchi, stridor Cardiovascular Exam: Present: regular rate, normal rhythm, normal heart sounds. Absent: systolic murmur, diastolic murmur, rubs, gallop, clicks GI/Abdominal exam: Present: soft, normal bowel sounds. Absent: distended, tenderness, guarding, rebound, rigid Extremities exam: Present: normal inspection, full ROM, normal capillary refill. Absent: tenderness, pedal edema, joint swelling, calf tenderness Back exam: Present: normal inspection Neurological exam: Present: alert, oriented X3, CN II-XII intact Psychiatric exam: Present: normal affect, normal mood Skin exam: Present: warm, dry, intact, normal color. Absent: rash <Nette Rock - Last Filed: 11/10/22 21:12> - General Exam Comments Initial Comments: Visual Physical Exam Vital signs reviewed General: Well-appearing, nontoxic, no acute distress. Head: Normocephalic, atraumatic Eyes: PERRLA, EOMI ENT: Airway patent Chest: Nonlabored breathing Skin: No visual rash, normal skin tone Neuro: Alert and oriented 3 Musculoskeletal: No gross abnormalities (Vogley,Kaila) Course Vital Signs 11/10/22 12:49 Temperature 97.9 F Pulse Rate 75 Respiratory 16 Rate Blood Pressure 116/75 O2 Sat by Pulse 97 Oximetry Medical Decision Making <eNtte Rock - Last Filed: 11/10/22 21:12> - Medical Decision Making Was pt. sent in by a medical professional or institution (, PA, ART HISTORY INSTRUCTOR, urgent care, hospital, or half-way...) When possible be specific @ -No Did you speak to anyone other than the patient for history (EMS, parent, family, police, friend...)? What history was obtained from this source @ -No Did you review nursing and triage notes (agree or disagree)? Why? @ -I reviewed and agree with nursing and triage notes Were old charts reviewed (outside hosp., previous admission, EMS record, old EKG, old radiological studies, urgent care reports/EKG's, half-way records)? Report findings @ -No old charts were reviewed Differential Diagnosis (chest pain, altered mental status, abdominal pain women, abdominal pain men, vaginal bleeding, weakness, fever, dyspnea, syncope, headache, dizziness, GI bleed, back pain, seizure, CVA, palpatations, mental health, musculoskeletal)? @ -Muscle strain, strep throat, mono, covid, this list is not all inclusive EKG interpreted by me (3pts min.). @ -None X-rays interpreted by me (1pt min.). @ -None done CT interpreted by me (1pt min.). @ -None done U/S interpreted by me (1pt. min.). @ -None done What testing was considered but not performed or refused? (CT, X-rays, U/S, labs)? Why? @ -None What meds were considered but not given or refused? Why? @ -None Did you discuss the management of the patient with other professionals (professionals i.e. , PA, ART HISTORY INSTRUCTOR, lab, RT, psych nurse, social work instructor, dockmaster, teacher, supervisor dog license officer, correctional counselor/case manager)? Give summary @ -No Was smoking cessation discussed for >3mins.? @ -No Was critical care preformed (if so, how long)? @ -No Were there social determinants of health that impacted care today? How? (Homelessness, low income, unemployed, alcoholism, drug addiction, transportation, low edu. Level, literacy, decrease access to med. care, halfway, rehab)? @ -No Was there de-escalation of care discussed even if they declined (Discuss DNR or withdrawal of care, Hospice)? DNR status @ -No What co-morbidities impacted this encounter? (DM, HTN, Smoking, COPD, CAD, Cancer, CVA, ARF, Chemo, Hep., AIDS, mental health diagnosis, sleep apnea, morbid obesity)? @ -None Was patient admitted / discharged? Hospital course, mention meds given and route, prescriptions, significant lab abnormalities, going to OR and other pertinent info. @ -Discharged. Patient presented to emergency department chief complaint of sore throat and neck pain 2 days. Patient is well-appearing with normal range of motion in the neck, oropharynx is erythematous, mild anterior cervical lymphadenopathy which he states is tender. Patient tested positive for strep pharyngitis and will be treated with amoxicillin. Patient has some muscle tenderness on his right side is likely muscle strain and a separate issue. No concerning neck stiffness. Patient discharged in stable condition with prescription sent patient's pharmacy. Case discussed with my attending, Dr. Zuleta. Undiagnosed new problem with uncertain prognosis? @ -No Drug Therapy requiring intensive monitoring for toxicity (Heparin, Nitro, Insulin, Cardizem)? @ -No Were any procedures done? @ -No Diagnosis/symptom? @ -strep pharyngitis Acute, or Chronic, or Acute on Chronic? @ -acute Uncomplicated (without systemic symptoms) or Complicated (systemic symptoms)? @ -uncomplicated Side effects of treatment? @ -No Exacerbation, Progression, or Severe Exacerbation? @ -No Poses a threat to life or bodily function? How? (Chest pain, [place], [place], pneumonia, PE, COPD, DKA, ARF, appy, cholecystitis, CVA, Diverticulitis, Homicidal, [place] icidal, threat to staff... and all critical care pts) @ -No (Nette Rock) - Lab Data Lab Results 11/10/22 Range/Units 14:45 Group A Strep (PCR) DETECTED A (Not Detectd) Disposition <Kaila Jain - Last Filed: 11/10/22 13:58> Is patient prescribed a controlled substance at d/c from ED?: No Time of Disposition: 16:30 <Nette Rock - Last Filed: 11/10/22 21:12> Clinical Impression: Strep pharyngitis Disposition: HOME SELF-CARE Condition: Stable Instructions (If sedation given, give patient instructions): Strep Throat (ED) Additional Instructions: Please return to the emergency department for new or worsening symptoms. Prescriptions: Amoxicillin 875 mg PO Q12HR #20 tablet Referrals: None,Stated [Primary Care Provider] - 1-2 days
[2022-11-10] MEDS ORDERED: AMOXICILLIN 875 MG TAB PO STA (16:38)
== END 2022-11-10 16:55 | disposition home or self-care (01) ==
LOC: EC 12:21
DX: J02.0 Streptococcal pharyngitis (principal); B95.0 Streptococcus, group A, as the cause of diseases classified elsewhere; F12.90 Cannabis use, unspecified, uncomplicated
CPT/HCPCS: 87651; 99283